=== PATIENT | female | born 1995 | race African-American/Black ===

== ENCOUNTER 2016-08-12 14:10 | Emergency (ER) | payer MEDICAID ==
[2016-08-12] MEDS ORDERED: SODIUM CHLORIDE 0.9% 1,000 ML ONE (16:14)
[2016-08-12] MEDS ORDERED: KETOROLAC 30 MG/ML VIAL ONE ×2 (18:21→18:35)
== END 2016-08-12 19:14 | disposition home or self-care (01) ==
LOC: ER 14:10
DX: K52.9 Noninfective gastroenteritis and colitis, unspecified (principal); A59.01 Trichomonal vulvovaginitis; N76.0 Acute vaginitis; B96.89 Other specified bacterial agents as the cause of diseases classified elsewhere
CPT/HCPCS: 36415; 74177; 80053; 81001; 83690; 84703; 85025; 87077; 87088; 87186; 87491; 87591; 87800; 87804; 96361; 96374